=== PATIENT | male | born 1945 ===

== ENCOUNTER 2017-09-05 16:27 | Observation (INO) | payer MEDICARE, MEDICAID ==
--- NOTE | 2017-09-05 17:12 | ED PDOC ---
Hyperglycemia/Hypoglycemia Time Seen by Provider: 09/05/17 16:56 Chief Complaint (Nursing): High Blood Sugar Chief Complaint (Provider): High Blood Sugar History Per: Patient, Family (daughter) History/Exam Limitations: language barrier (emirati speaking) Onset/Duration Of Symptoms: Days (2-3), Other (chronic left shoulder/chest region pain x months) Current Symptoms Are (Timing): Still Present Severity: Severe : The patient does not have any of the infectious symptoms listed except for those marked. Additional Complaint(s): 71 year old male presents to the emergency department with daughter complaining of constant, worsening left shoulder and left chest pain, onset two to three days ago. Reports pain is similar to past episodes intermittently over the past multiple months. Patient states that after falling many weeks ago, did not seek medical visit?, Daughter notes that the patient had previously been diagnosed with frozen shoulder and suspects this pain originates from that area. But b/c of the worsening and persistence of his left shoulder/chest pain, pt was encouraged to come to Emergency department today for evaluation. She also states that today he nearly fell while using the bathroom, feeling extremely weak, saying he could not stand or walk. Per family, he also began having new slurred speech as of yesterday. Patient also complains of a mild frontal headache with light headedness. In addition, he reports a decreased appetite. Patient does however deny loss of consciousness and dizziness. Denies vision changes, fever, chills, sweats. Denies shortness of breath, palpations, abdominal pain, nausea, vomiting. Denies bowel changes and gross bleeding. Pt is right hand dominant. 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 PCP: Nolberto Matos Cards: Dr Santiago Endo: Ruben Barron NIHSS Stroke Scale - Date/Time Evaluation Performed When Was NIHSS Performed: Baseline - How Severe is the Stroke Level of Consciousness: 0=Alert LOC to Questions: 0=Both comments correct LOC to commands: 0=Obeys both correctly Best Gaze: 0=Normal Visual: 0=No visual loss Facial: 0=Normal Motor Arm - Left: 0=No drift Motor Arm - Right: 0=No drift Motor Leg - Left: 0=No drift Motor Leg - Right: 0=No drift Limb Ataxia: 0=Absent Sensory: 0=Normal Best Language: 0=No aphasia Dysarthia: 0=Normal articulation Extinction & Inattention (Neglect): 0=Normal, no object Score: 0 Severity Of Stroke: 0 = No Stroke Past Medical History Reviewed: Historical Data, Nursing Documentation, Vital Signs Vital Signs: Last Vital Signs Temp 98 F 09/05/17 16:34 Pulse 86 09/05/17 16:34 Resp 18 09/05/17 16:34 BP 198/98 H 09/05/17 16:34 Pulse Ox 99 09/05/17 16:34 - Medical History PMH: CVA, Diabetes, HTN, Hypercholesterolemia, TIA - Surgical History Surgical History: CABG - Family History Family History: States: Unknown Family Hx - Living Arrangements Living Arrangements: With Family (daughter) - Social History Current smoker - smoking cessation education provided: No Alcohol: None Drugs: Denies - Home Medications Home Medications: Ambulatory Orders Medication Instructions Recorded Clopidogrel [Plavix] 75 mg PO DAILY 09/05/17 DULoxetine [Cymbalta] 30 mg PO Q12 09/05/17 Ergocalciferol (Vitamin D2) 50,000 unit PO TU 09/05/17 [Vitamin D2] Furosemide [Lasix] 20 mg PO DAILY 09/05/17 Insulin Glargine, Recombina 10 unit SC 09/05/17 [Lantus] Meloxicam [Mobic] 15 mg PO DAILY PRN 09/05/17 Metoprolol Succinate [Toprol XL] 25 mg PO DAILY 09/05/17 Nitroglycerin [Nitrostat] 0.4 mg SL Q5MIN PRN 09/05/17 Simvastatin 10 mg PO HS 09/05/17 Tamsulosin [Flomax] 0.4 mg PO HS 09/05/17 amLODIPine [Norvasc] 5 mg PO DAILY 09/05/17 traMADol [Ultram] 50 mg PO Q8 PRN 09/05/17 Gabapentin [Neurontin] 400 mg PO Q8 cap 09/06/17 GlipiZIDE [Glucotrol] 10 mg PO BRKDIN #60 tab 09/06/17 Mirtazapine [Remeron] 15 mg PO HS #20 tab 09/06/17 SITagliptin [Januvia] 100 mg PO DAILY #30 tab 05/16/18 - Allergies Allergies/Adverse Reactions: Allergies Allergy/AdvReac Type Severity Reaction Status Date / Time No Known Allergies Allergy Verified 02/27/17 18:42 Review of Systems ROS Statement: Except As Marked, All Systems Reviewed And Found Negative Constitutional: Positive for: Weakness (states cannot walk, cannot stand). Negative for: Fever, Chills, Sweats Eyes: Negative for: Vision Change Cardiovascular: Positive for: Chest Pain (left sided), Light Headedness. Negative for: Palpitations Respiratory: Negative for: Shortness of Breath Gastrointestinal: Negative for: Nausea, Vomiting, Abdominal Pain, Other (bowel changes) Genitourinary Male: Negative for: Other (gross bleeding) Musculoskeletal: Positive for: Shoulder Pain (left) Neurological: Positive for: Change in Speech (slurred speech, as per family), Headache (frontal). Negative for: Dizziness Physical Exam - Reviewed Nursing Documentation Reviewed: Yes Vital Signs Reviewed: Yes - Physical Exam Appears: Positive for: Well, Non-toxic, No Acute Distress Head Exam: Positive for: ATRAUMATIC, NORMAL INSPECTION, NORMOCEPHALIC Skin: Positive for: Normal Color, Warm, Dry Eye Exam: Positive for: EOMI, Normal appearance, PERRL ENT: Positive for: Normal ENT Inspection Neck: Positive for: Normal, Painless ROM, Supple Cardiovascular/Chest: Positive for: Regular Rate, Rhythm, Murmur (systolic +2), Other (mild left chest wall tenderness, no crepitus, no gross deformities noted ; no masses) Respiratory: Positive for: Normal Breath Sounds, Other (CTA b/l, no w/r/r). Negative for: Respiratory Distress Gastrointestinal/Abdominal: Positive for: Normal Exam, Bowel Sounds, Soft, Other (well nourished male, no focal tenderness, no masses/rebound/guarding/ rigidity, no hopper's sign, no mcburney's point tenderness). 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 Negative for : Aphasia, Facial Droop - Laboratory Results Result Diagrams: 09/06/17 05:30 09/06/17 05:30 - ECG ECG: Positive for: Interpreted By Me, Viewed By Me Interpretation Of ECG: NSr at 80 bpm, normal axis, no ectopy, inverted T in leads I, L, no st changes, ABNL EKG; O2 Sat by Pulse Oximetry: 99 (RA) Pulse Ox Interpretation: Normal - Radiology X-Ray: Viewed By Me, Read By Radiologist - Progress ED Course And Treament: Impression: 1) chest pain; 2) weakness; 3) slurr speech; 4) ambulatory dysfunction i have consider all the differential diagnosis regarding pt's chief medical complaints/clinical findings, including but are not limited to: r/o acs; weakness; r/o CVA; ambulatory dysfunction A/P: chest pain; weakness; slurr speech; ambulatory dysfunction - labs - iv - acs eval - xray - supportive care - observe/reevaluation 7:00pm - medical service attending contacted, Dr Lind, made aware, agrees with admission pt/family are made aware of pt's medical results agrees with admission Re-evaluation Time: 19:00 Condition: Re-examined - Physician Consult Information Time Consulting Physican Contacted: 18:50 Physician Contacted: diogo Medical Decision Making Medical Decision Making: Time: 17:06 Impression: 1) chest pain, 2) weakness, 3) ambulatory dysfunction; 4) slurr speech Differential Diagnosis: I have consider all the differential diagnosis regarding pt's chief medical complaints/clinical findings, including but are not limited to: r/o acs, r/o dehydration, r/o cva vs TIA Plan: --Type and Screen --CT Head w/o contrast --CMP --Lipase --Mg --TSH --Trop I --EKG --CBC w differential --PT / PTT --Chest XR --Shoulder XR --Urinalysis --Supportive care --Observe 18:15 Shoulder XR FINDINGS: BONES: Evidence of old trauma, proximal left Humerus affecting the neck left humeral head. Proliferative hypertrophic posttraumatic changes affect the inferior aspect of the humeral head and are adjacent to the glenoid JOINTS: Normal. Glenohumeral and acromioclavicular joints preserved. No osteoarthritis. SOFT TISSUE: Normal OTHER FINDINGS: None IMPRESSION: No acute findings related to / accounting for the clinical presentation 19:[address] FINDINGS: HEMORRHAGE: No intracranial hemorrhage BRAIN: No mass effect or edema. Cortical atrophy, periventricular small vessel disease VENTRICLES: Unremarkable. No hydrocephalus CALVARIUM: Unremarkable PARANASAL SINUSES: Unremarkable as visualized. No significant inflammatory changes MASTOID AIR CELLS: Unremarkable as visualized OTHER FINDINGS: None IMPRESSION: No acute intracranial abnormalities. No significant findings to account for the clinical presentation. Scribe Attestation: Documented by Alexandria Cline, acting as a scribe for Lenny Hunt MD Provider Scribe Attestation: All medical entries made by the Scribe were at my direction and personally dictated by me. I have reviewed the chart and agree that the record accurately reflects my personal performance of the history, physical exam, medical decision making, and the department course for this patient. I have also personally directed, reviewed, and agree with the discharge instructions and disposition. Disposition - Clinical Impression Clinical Impression: Chest pain with minimal risk for cardiac etiology, Slurred speech, Weakness, Ambulatory dysfunction - Patient ED Disposition Is Patient to be Admitted: Yes Discussed With : Diogo Doctor Will See Patient In The: ED Counseled Patient/Family Regarding: Studies Performed, Diagnosis - Disposition Disposition Time: 19:00 Condition: STABLE - Pt Status Changed To: Hospital Disposition Of: Observation
[2017-09-05 17:27] LABS: BASO % 0.4 % (0.0-2.0); EOS % 0.5 % (0.0-4.0); HEMOGLOBIN 13.3 g/dL (12.0-18.0); LYMPH # 1.7 K/uL (1.0-4.3); MEAN CELL VOLUME 90.5 fl (80.0-94.0); MEAN CORPUSCULAR HEMOGLOBIN 30.6 pg (27.0-31.0); MEAN CORPUSCULAR HGB CONC 33.8 g/dL (33.0-37.0); MEAN PLATELET VOLUME 7.1 fl (7.2-11.7); MONO # 0.6 K/uL (0.0-0.8); MONO % 7.9 % (0.0-10.0); NEUT # 5.3 K/uL (1.8-7.0); NEUT % 69.2 % (50.0-75.0); RBC 4.33 Mil/uL (4.40-5.90); RED CELL DISTRIBUTION WIDTH 13.2 % (11.5-14.5); WHITE BLOOD COUNT 7.7 K/uL (4.8-10.8)
[2017-09-05 17:47] LABS: ALB/GLOB RATIO 1.4 (1.0-2.1); ALBUMIN 3.9 g/dL (3.5-5.0); ALT/SGPT 50 U/L (21-72); AST/SGOT 25 U/L (17-59); BLOOD UREA NITROGEN 14 mg/dl (9-20); CALCIUM 9.6 mg/dL (8.4-10.2); GFR AFRICAN-AMERICAN > 60; GFR NON-AFRICAN AMERICAN > 60; LIPASE 74 U/L (23-300)
--- NOTE | 2017-09-05 17:47 | RAD ---
HISTORY: weakness, no fall COMPARISON: No prior. TECHNIQUE: Chest PA and lateral FINDINGS: LUNGS: No active pulmonary disease. PLEURA: No significant pleural effusion identified. No pneumothorax apparent. CARDIOVASCULAR: No radiographic findings to suggest acute or significant cardiovascular disease. Incidental Finding(s): Postoperative changes related to sternotomy OSSEOUS STRUCTURES: No significant abnormalities. VISUALIZED UPPER ABDOMEN: Normal. OTHER FINDINGS: None. IMPRESSION: No active disease.
[2017-09-05 17:51] LABS: INR 1.2 (0.9-1.2); PARTIAL THROMBOPLASTIN TIME 28.8 Seconds (25.6-37.1); PROTHROMBIN TIME 13.1 Seconds (9.8-13.1)
[2017-09-05 18:09] LABS: URINE BACTERIA RARE (<OCC); URINE BILIRUBIN NEGATIVE (NEGATIVE); URINE BLOOD NEGATIVE (NEGATIVE); URINE CLARITY SLIGHTY-CLOUDY (Clear); URINE COLOR YELLOW (YELLOW); URINE GLUCOSE (UA) 150 mg/dL (Normal); URINE HYALINE CAST 0-2 /hpf (0-2); URINE LEUKOCYTE ESTERASE NEG Leu/uL (Negative); URINE PROTEIN NEGATIVE (NEGATIVE)
--- NOTE | 2017-09-05 18:16 | RAD ---
PROCEDURE: Radiographs of the Left Shoulder HISTORY: hx of frozen shoulder, worse pain x 2-3 days COMPARISON: None FINDINGS: BONES: Evidence of old trauma, proximal left Humerus affecting the neck and left humeral head. Proliferative hypertrophic posttraumatic changes affect the inferior aspect of the humeral head and are adjacent to the glenoid. JOINTS: Normal. Glenohumeral and acromioclavicular joints preserved. No osteoarthritis. SOFT TISSUES: Normal. OTHER FINDINGS: None. IMPRESSION: No acute findings related to/accounting for the clinical presentation.
--- NOTE | 2017-09-05 19:04 | CT ---
PROCEDURE: CT HEAD WITHOUT CONTRAST. HISTORY: Weakness, slurred speech. Relevant medical history: History of prior CVA COMPARISON: None available. TECHNIQUE: Axial computed tomography images were obtained through the head/brain without intravenous contrast. Radiation dose: Total exam DLP = Peter 2.75 mGy-cm. This CT exam was performed using one or more of the following dose reduction techniques: Automated exposure control, adjustment of the mA and/or kV according to patient size, and/or use of iterative reconstruction technique. FINDINGS: HEMORRHAGE: No intracranial hemorrhage. BRAIN: No mass effect or edema. Cortical atrophy, periventricular small vessel disease. VENTRICLES: Unremarkable. No hydrocephalus. CALVARIUM: Unremarkable. PARANASAL SINUSES: Unremarkable as visualized. No significant inflammatory changes. MASTOID AIR CELLS: Unremarkable as visualized. No inflammatory changes. OTHER FINDINGS: None. IMPRESSION: No acute intracranial abnormalities. No significant findings to account for the clinical presentation.
--- NOTE | 2017-09-05 19:17 | CP.PCM.HP ---
History of Present Illness - History of Present Illness History of Present Illness: 71 yo male with history of CAD (quadruple bypass 17 yrs ago), DM2, HTN and CVA ( 10 and 4 yrs ago) brought by daughter claiming he progressively was getting weak and had difficulty ambulating since 2 weeks ago. She claimed he had been falling a number of times at home. Patient also has been complaining of left sided chest pain and has SOB on mild exertion. Daughter suspect that the chest pain might be an extension of his left frozen shoulder which have been bothering him causing him not to be able to sleep at night. Daughter also claimed that he used to take "Thyroid Hormone" but was DC about 6 months ago by offset plate maker claiming he did not need them anymore. Present on Admission - Present on Admission Any Indicators Present on Admission: No History of DVT/PE: No History of Uncontrolled Diabetes: No Urinary Catheter: No Decubitus Ulcer Present: No Review of Systems - Review of Systems All systems: reviewed and no additional remarkable complaints except (aside from those mentioned above, 12 point system review were negative by me) Past Patient History - Infectious Disease Hx of Infectious Diseases: None - Tetanus Immunizations Tetanus Immunization: Unknown - Past Medical History & Family History Past Medical History?: Yes Pertinent Family History: Mother and Father had DM2; Mother had HTN and of NC. - Past Social History Smoking Status: Never Smoked Chewing Tobacco Use: No Cigar Use: No Alcohol: None Drugs: Denies Home Situation {Lives}: With Family - CARDIAC Hx Hypercholesterolemia: Yes Hx Hypertension: Yes - PULMONARY Hx Respiratory Disorders: No - NEUROLOGICAL HX Cerebrovascular Accident: Yes (10 and 4 yrs ago) Hx Transient Ischemic Attacks (TIA): Yes - HEENT Hx HEENT Problems: No - RENAL Hx Chronic Kidney Disease: No - ENDOCRINE/METABOLIC Hx Diabetes Mellitus Type 2: Yes Hx Hypothyroidism: Yes ("thyroid hormone" DC 6 months ago) - HEMATOLOGICAL/ONCOLOGICAL Hx Blood Disorders: No - INTEGUMENTARY Hx Dermatological Problems: No - MUSCULOSKELETAL/RHEUMATOLOGICAL Hx Musculoskeletal Disorders: Yes Other/Comment: left Frozen Shoulder - GASTROINTESTINAL Hx Gastrointestinal Disorders: No - GENITOURINARY/GYNECOLOGICAL Hx Genitourinary Disorders: No - PSYCHIATRIC Hx Psychophysiologic Disorder: No Hx Substance Use: No - SURGICAL HISTORY Hx Coronary Artery Bypass Graft: Yes (17 yrs ago) - ANESTHESIA Hx Anesthesia: Yes Hx Anesthesia Reactions: No Meds Allergies/Adverse Reactions: Allergies Allergy/AdvReac Type Severity Reaction Status Date / Time No Known Allergies Allergy Verified 02/27/17 18:42 Physical Exam - Constitutional Appears: Other (sleepy but responsive) - Head Exam Head Exam: ATRAUMATIC - Eye Exam Eye Exam: PERRL. absent: Scleral icterus - ENT Exam ENT Exam: Mucous Membranes Moist - Neck Exam Neck exam: Negative for: Meningismus - Respiratory Exam Respiratory Exam: absent: Rales, Rhonchi, Wheezes, Respiratory Distress - Cardiovascular Exam Cardiovascular Exam: REGULAR RHYTHM, +S1, +S2 - GI/Abdominal Exam GI & Abdominal Exam: Soft. absent: Tenderness - Rectal Exam Rectal Exam: Deferred - Extremities Exam Extremities exam: Negative for: calf tenderness, pedal edema - Back Exam Back exam: absent: tenderness - Neurological Exam Neurological exam: Alert (but sleepy), Oriented x3 - Psychiatric Exam Psychiatric exam: Flat Affect - Skin Skin Exam: Dry, Intact Results - Vital Signs Recent Vital Signs: Last Vital Signs Temp 98.1 F 09/05/17 18:37 Pulse 71 09/05/17 18:37 Resp 16 09/05/17 18:37 BP 127/61 09/05/17 18:37 Pulse Ox 99 09/05/17 18:37 - Labs Result Diagrams: 09/05/17 17:18 09/05/17 17:18 Labs: Laboratory Results - last 24 hr 09/05/17 09/05/17 09/05/17 17:18 17:18 17:18 WBC 7.7 RBC 4.33 L Hgb 13.3 Hct 39.2 MCV 90.5 MCH 30.6 MCHC 33.8 RDW 13.2 Plt Count 168 MPV 7.1 L Neut % (Auto) 69.2 Lymph % (Auto) 22.0 Bradley % (Auto) 7.9 Eos % (Auto) 0.5 Baso % (Auto) 0.4 Neut # (Auto) 5.3 Lymph # (Auto) 1.7 Bradley # (Auto) 0.6 Eos # (Auto) 0.0 Baso # (Auto) 0.0 PT 13.1 INR 1.2 APTT 28.8 Sodium 133 Potassium 3.7 Chloride 95 L Carbon Dioxide 23 Anion Gap 19 BUN 14 Creatinine 0.5 L Est GFR ( Amer) > 60 Est GFR (Non-Af Amer) > 60 Random Glucose 251 H Calcium 9.6 Magnesium 1.4 L Total Bilirubin 0.7 AST 25 ALT 50 Alkaline Phosphatase 66 Troponin I < 0.0120 Total Protein 6.7 Albumin 3.9 Globulin 2.8 Albumin/Globulin Ratio 1.4 Lipase 74 TSH 3rd Generation 1.14 Urine Color Urine Clarity Urine pH Ur Specific Frontier Urine Protein Urine Glucose (UA) Urine Ketones Urine Blood Urine Nitrate Urine Bilirubin Urine Urobilinogen Ur Leukocyte Esterase Urine RBC (Auto) Urine Microscopic WBC Urine Bacteria Hyaline Casts Blood Type Antibody Screen BBK History Checked 09/05/17 09/05/17 17:18 17:46 WBC RBC Hgb Hct MCV MCH MCHC RDW Plt Count MPV Neut % (Auto) Lymph % (Auto) Bradley % (Auto) Eos % (Auto) Baso % (Auto) Neut # (Auto) Lymph # (Auto) Bradley # (Auto) Eos # (Auto) Baso # (Auto) PT INR APTT Sodium Potassium Chloride Carbon Dioxide Anion Gap BUN Creatinine Est GFR ( Amer) Est GFR (Non-Af Amer) Random Glucose Calcium Magnesium Total Bilirubin AST ALT Alkaline Phosphatase Troponin I Total Protein Albumin Globulin Albumin/Globulin Ratio Lipase TSH 3rd Generation Urine Color Yellow Urine Clarity Slighty-cloudy Urine pH 7.0 Ur Specific Frontier 1.019 Urine Protein Negative Urine Glucose (UA) 150 Urine Ketones Negative Urine Blood Negative Urine Nitrate Negative Urine Bilirubin Negative Urine Urobilinogen 2.0 Ur Leukocyte Esterase Neg Urine RBC (Auto) 2 Urine Microscopic WBC 1 Urine Bacteria Rare Hyaline Casts 0-2 Blood Type O POSITIVE Antibody Screen Negative BBK History Checked No verified bt Assessment & Plan - Assessment and Plan (Free Text) Assessment: 71 yo male with history of CAD (quadruple bypass 17 yrs ago), DM2, HTN and CVA ( 10 and 4 yrs ago) brought by daughter claiming he progressively was getting weak and had difficulty ambulating since 2 weeks ago. She claimed he had been falling a number of times at home. Patient also has been complaining of left sided chest pain and has SOB on mild exertion. Daughter suspect that the chest pain might be an extension of his left frozen shoulder which have been bothering him causing him not to be able to sleep at night. Daughter also claimed that he used to take "Thyroid Hormone" but was DC about 6 months ago by offset plate maker claiming he did not need them anymore. 1. Chest Pain place on observation in telemetry serial Troponins and EKG ECHO (daughter claimed he has easy fatigability) 2. Generalized Weakness TSH: 1.[address] Diaz condition might be secondary to uncontrolled depression patient on Cymbalta and Remeron Psyche consult with Dr Nolasco 3. DM2 BS uncontrolled Levemir 10 units SC HS Sitagliptin 50mg PO daily Metformin 500mg PO BID accuchek ACHS HgA1C, BMP in am 4. CAD NTG SL prn Toprol XL 25mg PO daily Lipitor 10mg PO HS Plavix 75mg PO daily 5. HTN BP stable continue Amlodipine and Toprol XL 6. DVT prophylaxis Lovenox 40mg SC daily
[2017-09-05] MEDS ORDERED: Ergocalciferol 50,000 Intl Units Cap PO SCH (20:15)
[2017-09-05] MEDS ORDERED: Insulin Detemir 100 Units/ml Inj SC SCH (22:30)
[2017-09-06] MEDS ORDERED: Labetalol 5 mg/ml Inj 20ML IVP STA (01:08)
--- NOTE | 2017-09-06 03:58 | CON ---
ENDOCRINOLOGY CONSULTATION NOTE DATE: LOCATION: In room 406, bed 1. HISTORY OF PRESENT ILLNESS: This is a 71-year-old male with known history of type 2 diabetes and hypertension and significant cardiac vasculopathy, presenting here with worsening left-sided precordial chest pain with progressive shortness of breath and is now being referred for diabetic evaluation and management. He is undergoing cardiac workup at this time and also neurological workup for possible recurrent CVA as noted. He has had recent bouts of increasing dizziness and lightheadedness with near syncopal episodes and difficulty with ambulation as noted. PAST MEDICAL HISTORY: As mentioned above, history of type 2 diabetes, currently on Janumet given twice a day, the exact dose is not known at this time. History of hypertension and dyslipidemia, history of diabetic retinopathy and polyneuropathy, history of coronary artery disease with previous quadruple coronary artery bypass graft surgery over 15 years ago, and history of recent transient ischemic events with significant history of two episodes of acute CVA with slight residual left-sided weakness. History of left frozen shoulder and osteoarthritis and bursitis with restricted motion of the left shoulder joint worse in the last few days prior to admission, history of an apparent thyroid disorder, but has been taken off thyroid medications as noted. FAMILY HISTORY: Positive for diabetes and hypertension. SOCIAL HISTORY: The patient has a supportive family. No known substance use. He lives with his daughter at this time. REVIEW OF SYSTEMS: Admits to generalized body weakness with increasing bouts of hypersomnolence and lethargy with distracted sleep patterns. Also admits to bifrontal headaches with progressive bouts of dizziness and lightheadedness with increasing difficulty with ambulation and near syncopal episodes. Admits to left-sided precordial chest pain with progressive shortness of breath especially on exertion. His oral intake has been variable with nausea, dyspepsia, and vague upper abdominal pains. Also admits to episodic bouts of nocturia and polyuria with lower extremity painful paresthesias. PHYSICAL EXAMINATION: GENERAL: This is an average built male in no apparent distress. VITAL SIGNS: Blood pressure of 150/90, pulse of 70 beats per minute and regular, temperature 98, respirations 20, height is 5 feet 4 inches, and weight is 140 pounds. HEENT: Head is normocephalic. Eyes; anicteric with pink conjunctivae. Funduscopy not possible at this time. Ears, nose, and throat otherwise normal. NECK: Supple. Thyroid gland is normal in size. No carotid bruits or cervical adenopathy. CARDIOPULMONARY: Some adynamic precordium. S1 and S2 is rapid and regular. LUNGS: Clear to auscultation. ABDOMEN: Flat and soft with positive bowel sounds. EXTREMITIES: No peripheral edema. Pulses are +2 bilaterally. LABORATORY DATA: Chemistries showed a BUN of 14, sodium 133, potassium 3.7, chloride 95, CO2 of 23, glucose 251, and creatinine 0.5. His TSH is 1.14 at this time. ASSESSMENT: This is a 71-year-old male with uncontrolled and decompensated type 2 insulin-requiring diabetes with recent hyperglycemic accelerations possibly related to a subtherapeutic diabetic regimen at this time. Moreover, he has diabetic microvascular complications of retinopathy and polyneuropathy with diabetic macrovascular complications of acute cerebrovascular accident with previous transient ischemic attack events and also residual left-sided weakness as noted. He also has a recurrent bouts of near syncope and episodic bouts of dizziness and lightheadedness and the possibility always of a vertebrobasilar insufficiency also has to be excluded at this point in time. Moreover, he has significant coronary artery disease with previous coronary artery bypass graft surgery as mentioned with underlying peripheral arterial vasculopathy. PLAN OF MANAGEMENT: As discussed with the patient's staff, we will modify his current insulin regimen and start him on a very low dose Humalog coverage scale as ordered and we will observe his glycemic fluctuations overnight as noted. We will continue the Levemir given as 10 units subcutaneously at bedtime daily and we will titrate incremental as indicated to optimize metabolic control. We will hold off the resumption of metformin therapy, not only because of his advanced age at this time, but also because of the possibility of cardiac workup to be undertaken as noted. We will also add glipizide given as 10 mg b.i.d. before breakfast and dinner as ordered with Januvia to be added at 100 mg once daily in the morning to start tomorrow as given. We will obtain a hemoglobin A1c to confirm his prior glycemic control and baseline comprehensive thyroid hormonal profile will be ordered. We will obtain serial chemistry and supplement accordingly as needed. We will follow. Roxanna Diaz MD
[2017-09-06 06:30] LABS: BASO % 0.5 % (0.0-2.0); EOS # 0.1 K/uL (0.0-0.7); EOS % 0.8 % (0.0-4.0); HEMOGLOBIN 13.5 g/dL (12.0-18.0); LYMPH # 2.2 K/uL (1.0-4.3); LYMPH % 32.1 % (20.0-40.0); MEAN CELL VOLUME 90.2 fl (80.0-94.0); MEAN CORPUSCULAR HEMOGLOBIN 30.9 pg (27.0-31.0); MEAN CORPUSCULAR HGB CONC 34.3 g/dL (33.0-37.0); MEAN PLATELET VOLUME 7.2 fl (7.2-11.7); MONO # 0.5 K/uL (0.0-0.8); MONO % 7.3 % (0.0-10.0); NEUT # 4.1 K/uL (1.8-7.0); NEUT % 59.3 % (50.0-75.0); NRBC % 0.1 % (0.0-0.0); RBC 4.37 Mil/uL (4.40-5.90); RED CELL DISTRIBUTION WIDTH 12.9 % (11.5-14.5); WHITE BLOOD COUNT 6.9 K/uL (4.8-10.8)
[2017-09-06] MEDS: Insulin Lispro (humaLOG) 100 Units/ml Inj SC SCH ×2 (06:31→12:55)
[2017-09-06 06:48] LABS: LDL CHOLESTEROL 76 mg/dL (0-129)
[2017-09-06 06:53] LABS: T4 5.85 ug/dl (5.5-11.0)
[2017-09-06 07:37] LABS: ALB/GLOB RATIO 1.4 (1.0-2.1); ALBUMIN 3.8 g/dL (3.5-5.0); ALT/SGPT 45 U/L (21-72); AST/SGOT 23 U/L (17-59); BLOOD UREA NITROGEN 11 mg/dl (9-20); CALCIUM 9.7 mg/dL (8.4-10.2); GFR AFRICAN-AMERICAN > 60; GFR NON-AFRICAN AMERICAN > 60; HDL CHOLESTEROL 53 MG/DL (30-70)
--- NOTE | 2017-09-06 07:38 | CP.PCM.CON ---
History of Present Illness - History of Present Illness History of Present Illness: Psychiatry consult note CC: "I'm depressed." HPI: 71 yo ma.e w/ h/o CAD (s/p quadruple bypass 17 yrs ago), DMII, HTN, CVA ( 10 and 4 yrs ago), chronic pain, BIB daughter due to weakness and difficulty ambulating. Patient also reports depression, low energy and feelings of hopelessness at times. He reports that sometimes he thinks about , but denies active suicidal ideation/plan/intent. He is not agreeable to voluntary psychiatric admission at this time. No psychosis/paranoia/susan. PMHx: CAD (s/p quadruple bypass 17 yrs ago), DMII, HTN, CVA (10 and 4 yrs ago), chronic pain PPHx: Denies past psychiatric treatment or hospitalizations ALL: NKDA SHx: Lives w/ and children; denies drugs/etoh/cig; retired MSE: A + O x 3, calm, cooperative, NAD, speech normal, good eye contact, mood- depressed, affect- full range/able to brighten, thought process- linear/coherent , thought content- no delusions; no AH/VH/SI/HI; fair I/J Impression: 71 yo male w/ h/o CAD (s/p quadruple bypass 17 yrs ago), DMII, HTN, CVA (10 and 4 yrs ago), chronic pain; presents w/ depression, would benefit from outpatient psychiatric treatment. -Increase Remeron to 15 mg PO HS -No inpatient psychiatric admission indicated at this time -Outpatient psychiatric referral; can refer to [facility] if patient agreeable Past Patient History - Infectious Disease Hx of Infectious Diseases: None - Tetanus Immunizations Tetanus Immunization: Unknown - Past Medical History & Family History Past Medical History?: Yes - Past Social History Smoking Status: Never Smoked - CARDIAC Hx Hypercholesterolemia: Yes Hx Hypertension: Yes - PULMONARY Hx Respiratory Disorders: No - NEUROLOGICAL HX Cerebrovascular Accident: Yes (10 and 4 yrs ago) Hx Transient Ischemic Attacks (TIA): Yes - HEENT Hx HEENT Problems: No - RENAL Hx Chronic Kidney Disease: No - ENDOCRINE/METABOLIC Hx Diabetes Mellitus Type 2: Yes Hx Hypothyroidism: Yes ("thyroid hormone" DC 6 months ago) - HEMATOLOGICAL/ONCOLOGICAL Hx Blood Disorders: No Hx AIDS: No Hx Blood Transfusions: No Hx Human Immunodeficiency Virus (HIV): No - INTEGUMENTARY Hx Dermatological Problems: No - MUSCULOSKELETAL/RHEUMATOLOGICAL Hx Musculoskeletal Disorders: Yes Hx Falls: Yes Other/Comment: left Frozen Shoulder - GASTROINTESTINAL Hx Gastrointestinal Disorders: No - GENITOURINARY/GYNECOLOGICAL Hx Genitourinary Disorders: No - PSYCHIATRIC Hx Depression: Yes Hx Substance Use: No - SURGICAL HISTORY Hx Surgeries: Yes Hx Coronary Artery Bypass Graft: Yes (17 yrs ago) - ANESTHESIA Hx Anesthesia: Yes Hx Anesthesia Reactions: No Meds Allergies/Adverse Reactions: Allergies Allergy/AdvReac Type Severity Reaction Status Date / Time No Known Allergies Allergy Verified 02/27/17 18:42 - Medications Medications: Current Medications Acetaminophen (Tylenol 325mg Tab) 650 mg PO Q6 PRN PRN Reason: Pain, Mild (1-3) Last Admin: 09/05/17 21:17 Dose: 650 mg Amlodipine Besylate (Norvasc) 5 mg PO DAILY [facility] Baclofen (Lioresal) 10 mg PO Q8 PRN PRN Reason: Muscle spasm Clopidogrel Bisulfate (Plavix) 75 mg PO DAILY [facility] Docusate Sodium (Colace) 100 mg PO BID PRN PRN Reason: Constipation Duloxetine HCl (Cymbalta) 30 mg PO Q12 [facility] Last Admin: 09/05/17 23:05 Dose: 30 mg Enoxaparin Sodium (Lovenox) 40 mg SC DAILY [facility] PRN Reason: Protocol Ergocalciferol (Drisdol 50,000 Intl Units Cap) 1 cap PO TU [facility] Last Admin: 09/05/17 22:12 Dose: Not Given Furosemide (Lasix) 20 mg PO DAILY [facility] Gabapentin (Neurontin) 400 mg PO Q8 [facility] Last Admin: 09/06/17 01:09 Dose: 400 mg Glipizide (Glucotrol) 10 mg PO BIDAC [facility] Insulin Detemir (Levemir) 10 units SC [facility] Last Admin: 09/05/17 23:05 Dose: 10 units Insulin Human Lispro (Humalog) 0 units SC [facility] Last Admin: 09/06/17 06:31 Dose: Not Given Metoprolol Succinate (Toprol Xl) 25 mg PO DAILY [facility] Mirtazapine (Remeron) 7.5 mg PO HS [facility] Last Admin: 09/05/17 23:05 Dose: 7.5 mg Nitroglycerin (Nitrostat Sl Tab) 0.4 mg SL Q5MIN PRN PRN Reason: Other Pantoprazole Sodium (Protonix Ec Tab) 40 mg PO DAILY KAYLIE Pravastatin Sodium (Pravachol) 20 mg PO HS KAYLIE Last Admin: 09/05/17 23:06 Dose: 20 mg Sitagliptin Phosphate (Januvia) 100 mg PO DAILY KAYLIE Tamsulosin HCl (Flomax) 0.4 mg PO HS KAYLIE Last Admin: 09/05/17 23:05 Dose: 0.4 mg Tramadol HCl (Ultram) 50 mg PO Q8 PRN PRN Reason: Pain, severe (8-10) Results - Vital Signs Recent Vital Signs: Last Vital Signs Temp 98.9 F 09/06/17 05:43 Pulse 79 09/06/17 05:43 Resp 18 09/06/17 05:43 BP 109/79 09/06/17 05:43 Pulse Ox 98 09/06/17 05:43 - Labs Result Diagrams: 09/06/17 05:30 09/06/17 05:30 Labs: Laboratory Results - last 24 hr 09/05/17 09/05/17 09/05/17 17:18 17:18 17:18 WBC 7.7 RBC 4.33 L Hgb 13.3 Hct 39.2 MCV 90.5 MCH 30.6 MCHC 33.8 RDW 13.2 Plt Count 168 MPV 7.1 L Neut % (Auto) 69.2 Lymph % (Auto) 22.0 Mower % (Auto) 7.9 Eos % (Auto) 0.5 Baso % (Auto) 0.4 Neut # (Auto) 5.3 Lymph # (Auto) 1.7 Mower # (Auto) 0.6 Eos # (Auto) 0.0 Baso # (Auto) 0.0 PT 13.1 INR 1.2 APTT 28.8 Sodium 133 Potassium 3.7 Chloride 95 L Carbon Dioxide 23 Anion Gap 19 BUN 14 Creatinine 0.5 L Est GFR ( Amer) > 60 Est GFR (Non-Af Amer) > 60 POC Glucose (mg/dL) Random Glucose 251 H Calcium 9.6 Magnesium 1.4 L Total Bilirubin 0.7 AST 25 ALT 50 Alkaline Phosphatase 66 Troponin I < 0.0120 Total Protein 6.7 Albumin 3.9 Globulin 2.8 Albumin/Globulin Ratio 1.4 Triglycerides Cholesterol LDL Cholesterol Direct HDL Cholesterol Lipase 74 Vitamin B12 Free T4 Thyroxine (T4) TSH 3rd Generation 1.14 Urine Color Urine Clarity Urine pH Ur Specific [place] Urine Protein Urine Glucose (UA) Urine Ketones Urine Blood Urine Nitrate Urine Bilirubin Urine Urobilinogen Ur Leukocyte Esterase Urine RBC (Auto) Urine Microscopic WBC Urine Bacteria Hyaline Casts Blood Type Antibody Screen BBK History Checked 09/05/17 09/05/17 09/05/17 17:18 17:46 22:05 WBC RBC Hgb Hct MCV MCH MCHC RDW Plt Count MPV Neut % (Auto) Lymph % (Auto) Mower % (Auto) Eos % (Auto) Baso % (Auto) Neut # (Auto) Lymph # (Auto) Mower # (Auto) Eos # (Auto) Baso # (Auto) PT INR APTT Sodium Potassium Chloride Carbon Dioxide Anion Gap BUN Creatinine Est GFR ( Amer) Est GFR (Non-Af Amer) POC Glucose (mg/dL) 153 H Random Glucose Calcium Magnesium Total Bilirubin AST ALT Alkaline Phosphatase Troponin I Total Protein Albumin Globulin Albumin/Globulin Ratio Triglycerides Cholesterol LDL Cholesterol Direct HDL Cholesterol Lipase Vitamin B12 Free T4 Thyroxine (T4) TSH 3rd Generation Urine Color Yellow Urine Clarity Slighty-cloudy Urine pH 7.0 Ur Specific [place] 1.019 Urine Protein Negative Urine Glucose (UA) 150 Urine Ketones Negative Urine Blood Negative Urine Nitrate Negative Urine Bilirubin Negative Urine Urobilinogen 2.0 Ur Leukocyte Esterase Neg Urine RBC (Auto) 2 Urine Microscopic WBC 1 Urine Bacteria Rare Hyaline Casts 0-2 Blood Type O POSITIVE Antibody Screen Negative BBK History Checked No verified bt 09/06/17 09/06/17 09/06/17 01:18 04:57 05:30 WBC 6.9 RBC 4.37 L Hgb 13.5 Hct 39.4 MCV 90.2 MCH 30.9 MCHC 34.3 RDW 12.9 Plt Count 168 MPV 7.2 Neut % (Auto) 59.3 Lymph % (Auto) 32.1 Mower % (Auto) 7.3 Eos % (Auto) 0.8 Baso % (Auto) 0.5 Neut # (Auto) 4.1 Lymph # (Auto) 2.2 Mower # (Auto) 0.5 Eos # (Auto) 0.1 Baso # (Auto) 0.0 PT INR APTT Sodium Potassium Chloride Carbon Dioxide Anion Gap BUN Creatinine Est GFR ( Amer) Est GFR (Non-Af Amer) POC Glucose (mg/dL) 128 H Random Glucose Calcium Magnesium Total Bilirubin AST ALT Alkaline Phosphatase Troponin I < 0.0120 Total Protein Albumin Globulin Albumin/Globulin Ratio Triglycerides Cholesterol LDL Cholesterol Direct HDL Cholesterol Lipase Vitamin B12 Free T4 Thyroxine (T4) TSH 3rd Generation Urine Color Urine Clarity Urine pH Ur Specific [place] Urine Protein Urine Glucose (UA) Urine Ketones Urine Blood Urine Nitrate Urine Bilirubin Urine Urobilinogen Ur Leukocyte Esterase Urine RBC (Auto) Urine Microscopic WBC Urine Bacteria Hyaline Casts Blood Type Antibody Screen BBK History Checked 09/06/17 09/06/17 05:30 05:30 WBC RBC Hgb Hct MCV MCH MCHC RDW Plt Count MPV Neut % (Auto) Lymph % (Auto) Mower % (Auto) Eos % (Auto) Baso % (Auto) Neut # (Auto) Lymph # (Auto) Mower # (Auto) Eos # (Auto) Baso # (Auto) PT INR APTT Sodium 144 Potassium 3.4 L Chloride 102 Carbon Dioxide 28 Anion Gap 17 BUN 11 Creatinine 0.5 L Est GFR ( Amer) > 60 Est GFR (Non-Af Amer) > 60 POC Glucose (mg/dL) Random Glucose 139 H Calcium 9.7 Magnesium Total Bilirubin 0.9 AST 23 ALT 45 Alkaline Phosphatase 66 Troponin I Total Protein 6.6 Albumin 3.8 Globulin 2.8 Albumin/Globulin Ratio 1.4 Triglycerides 102 Cholesterol 152 LDL Cholesterol Direct 76 HDL Cholesterol 53 Lipase Vitamin B12 722 Free T4 0.82 Thyroxine (T4) 5.85 TSH 3rd Generation 1.34 Urine Color Urine Clarity Urine pH Ur Specific [place] Urine Protein Urine Glucose (UA) Urine Ketones Urine Blood Urine Nitrate Urine Bilirubin Urine Urobilinogen Ur Leukocyte Esterase Urine RBC (Auto) Urine Microscopic WBC Urine Bacteria Hyaline Casts Blood Type Antibody Screen BBK History Checked
[2017-09-06 08:09] VITALS: RESP 20
[2017-09-06] MEDS ORDERED: Pantoprazole 40 mg EC Tab PO SCH (09:00)
[2017-09-06] MEDS ORDERED: Metoprolol Succinate 25 mg XL Tab PO SCH (09:00)
[2017-09-06] MEDS ORDERED: Enoxaparin 40 mg Syringe SC SCH (09:00)
[2017-09-06] MEDS ORDERED: Potassium Chloride 20 mEq ER Tab PO ONE (11:00)
[2017-09-06 11:57] VITALS: BP 129/79; PULSE 70; TEMP 97.6
--- NOTE | 2017-09-06 14:27 | CP.PCM.DIS ---
Provider - Provider Date of Admission: 09/05/17 18:24 Attending physician: Diogo Roque MD Consults: Dr Joe Nolasco Time Spent in preparation of Discharge (in minutes): 25 Diagnosis - Discharge Diagnosis (1) Chest pain Status: Acute Comment: serial Troponins negative for ischemic changes (2) Weakness Status: Acute Comment: more uplifted today. continue anti-depressant (3) DM2 (diabetes mellitus, type 2) Status: Acute Comment: BS controlled. DC Metformin. continue Januvia and Lantus. Glucotrol 10mg PO BID (4) HTN (hypertension) Status: Acute Comment: BP stable. continue Amlodipine Hospital Course - Lab Results Lab Results: Most Recent Lab Values WBC 6.9 K/uL (4.8-10.8) 09/06/17 05:30 RBC 4.37 Mil/uL (4.40-5.90) L 09/06/17 05:30 Hgb 13.5 g/dL (12.0-18.0) 09/06/17 05:30 Hct 39.4 % (35.0-51.0) 09/06/17 05:30 MCV 90.2 fl (80.0-94.0) 09/06/17 05:30 MCH 30.9 pg (27.0-31.0) 09/06/17 05:30 MCHC 34.3 g/dL (33.0-37.0) 09/06/17 05:30 RDW 12.9 % (11.5-14.5) 09/06/17 05:30 Plt Count 168 K/uL (130-400) 09/06/17 05:30 MPV 7.2 fl (7.2-11.7) 09/06/17 05:30 Neut % (Auto) 59.3 % (50.0-75.0) 09/06/17 05:30 Lymph % (Auto) 32.1 % (20.0-40.0) 09/06/17 05:30 Elmore % (Auto) 7.3 % (0.0-10.0) 09/06/17 05:30 Eos % (Auto) 0.8 % (0.0-4.0) 09/06/17 05:30 Baso % (Auto) 0.5 % (0.0-2.0) 09/06/17 05:30 Neut # (Auto) 4.1 K/uL (1.8-7.0) 09/06/17 05:30 Lymph # (Auto) 2.2 K/uL (1.0-4.3) 09/06/17 05:30 Elmore # (Auto) 0.5 K/uL (0.0-0.8) 09/06/17 05:30 Eos # (Auto) 0.1 K/uL (0.0-0.7) 09/06/17 05:30 Baso # (Auto) 0.0 K/uL (0.0-0.2) 09/06/17 05:30 PT 13.1 Seconds (9.8-13.1) 09/05/17 17:18 INR 1.2 (0.9-1.2) 09/05/17 17:18 APTT 28.8 Seconds (25.6-37.1) 09/05/17 17:18 Sodium 144 mmol/l (132-148) 09/06/17 05:30 Potassium 3.4 MMOL/L (3.6-5.0) L 09/06/17 05:30 Chloride 102 mmol/L (98-107) 09/06/17 05:30 Carbon Dioxide 28 mmol/L (22-30) 09/06/17 05:30 Anion Gap 17 (10-20) 09/06/17 05:30 BUN 11 mg/dl (9-20) 09/06/17 05:30 Creatinine 0.5 mg/dl (0.8-1.5) L 09/06/17 05:30 Est GFR ( Amer) > 60 09/06/17 05:30 Est GFR (Non-Af Amer) > 60 09/06/17 05:30 POC Glucose (mg/dL) 189 mg/dL (65-110) H 09/06/17 10:35 Random Glucose 139 mg/dL (75-110) H 09/06/17 05:30 Hemoglobin A1c 7.1 % (4.2-6.5) H 09/06/17 05:30 Calcium 9.7 mg/dL (8.4-10.2) 09/06/17 05:30 Magnesium 1.4 MG/DL (1.6-2.3) L 09/05/17 17:18 Total Bilirubin 0.9 mg/dl (0.2-1.3) 09/06/17 05:30 AST 23 U/L (17-59) 09/06/17 05:30 ALT 45 U/L (21-72) 09/06/17 05:30 Alkaline Phosphatase 66 U/L (38-126) 09/06/17 05:30 Troponin I < 0.0120 ng/mL (0.00-0.120) 09/06/17 09:14 Total Protein 6.6 G/DL (6.3-8.2) 09/06/17 05:30 Albumin 3.8 g/dL (3.5-5.0) 09/06/17 05:30 Globulin 2.8 gm/dL (2.2-3.9) 09/06/17 05:30 Albumin/Globulin Ratio 1.4 (1.0-2.1) 09/06/17 05:30 Triglycerides 102 mg/DL (0-149) 09/06/17 05:30 Cholesterol 152 mg/dL (0-199) 09/06/17 05:30 LDL Cholesterol Direct 76 mg/dL (0-129) 09/06/17 05:30 HDL Cholesterol 53 MG/DL (30-70) 09/06/17 05:30 Lipase 74 U/L (23-300) 09/05/17 17:18 Vitamin B12 722 pg/mL (239-931) 09/06/17 05:30 Free T4 0.82 ng/dL (0.78-2.19) 09/06/17 05:30 Thyroxine (T4) 5.85 ug/dl (5.5-11.0) 09/06/17 05:30 TSH 3rd Generation 1.34 mIU/ML (0.46-4.68) 09/06/17 05:30 Cortisol AM Sample 1.6 ug/dL (4.46-22.7) L 09/06/17 05:30 Urine Color Yellow (YELLOW) 09/05/17 17:46 Urine Clarity Slighty-cloudy (Clear) 09/05/17 17:46 Urine pH 7.0 (5.0-8.0) 09/05/17 17:46 Ur Specific [place] 1.019 (1.003-1.030) 09/05/17 17:46 Urine Protein Negative mg/dL (NEGATIVE) 09/05/17 17:46 Urine Glucose (UA) 150 mg/dL (Normal) 09/05/17 17:46 Urine Ketones Negative mg/dL (NEGATIVE) 09/05/17 17:46 Urine Blood Negative (NEGATIVE) 09/05/17 17:46 Urine Nitrate Negative (NEGATIVE) 09/05/17 17:46 Urine Bilirubin Negative (NEGATIVE) 09/05/17 17:46 Urine Urobilinogen 2.0 mg/dL (0.2-1.0) 09/05/17 17:46 Ur Leukocyte Esterase Neg Harsha/uL (Negative) 09/05/17 17:46 Urine RBC (Auto) 2 /hpf (0-3) 09/05/17 17:46 Urine Microscopic WBC 1 /hpf (0-5) 09/05/17 17:46 Urine Bacteria Rare (<OCC) 09/05/17 17:46 Hyaline Casts 0-2 /hpf (0-2) 09/05/17 17:46 Blood Type O POSITIVE 09/05/17 17:18 Antibody Screen Negative 09/05/17 17:18 BBK History Checked No verified bt 09/05/17 17:18 - Hospital Course Hospital Course: 71 yo male with history of CAD (quadruple bypass 17 yrs ago), DM2, HTN and CVA ( 10 and 4 yrs ago) brought by daughter claiming he progressively was getting weak and had difficulty ambulating since 2 weeks ago. She claimed he had been falling a number of times at home. Patient also has been complaining of left sided chest pain and has SOB on mild exertion. Daughter suspect that the chest pain might be an extension of his left frozen shoulder which have been bothering him causing him not to be able to sleep at night. Patient was placed on chest observation and evaluated for extreme weakness and lethargy. Serial Troponins were negative. ECHO did not show any abnormality. Endocrinology and Psyche consult were called. Dr Nolasco, psyche consult, advised increasing dose of Remeron and continue Cymbalta. Patient the next day was more up and talking compared to previous when he was more down, listless and not talking at all. Patient was discharged in stable condition. Discharge Exam - Head Exam Head Exam: ATRAUMATIC - Eye Exam Eye Exam: absent: Scleral icterus - ENT Exam ENT Exam: Mucous Membranes Moist - Respiratory Exam Respiratory Exam: absent: Rhonchi, Wheezes, Respiratory Distress, Stridor - Cardiovascular Exam Cardiovascular Exam: REGULAR RHYTHM, +S1, +S2 - GI/Abdominal Exam GI & Abdominal Exam: Soft. absent: Tenderness - Rectal Exam Rectal Exam: Deferred - Back Exam Back exam: absent: tenderness - Neurological Exam Neurological exam: Alert, Oriented x3 - Psychiatric Exam Psychiatric exam: Normal Affect - Skin Skin Exam: Dry, Intact Discharge Plan - Discharge Medications Prescriptions: GlipiZIDE [Glucotrol] 10 mg PO BRKDIN #60 tab Mirtazapine [Remeron] 15 mg PO HS #20 tab SITagliptin [Januvia] 100 mg PO DAILY #30 tab - Follow Up Plan Condition: STABLE Disposition: HOME/ ROUTINE Instructions: Depression, Adult (DC), Chest Pain (DC) Additional Instructions: hacer ekaterina con el doctor en 1 semana Referrals: Nolberto Canales MD [Family Provider] -
--- NOTE | 2017-09-06 17:43 | CARD ---
APPROVED REPORT EXAM: Two-dimensional and M-mode echocardiogram with Doppler and color Doppler. Other Information Quality : GoodRhythm : NSR INDICATION Chest Pain Surgery/Intervention CABD DIMENSIONS IVSd1.17 (0.7-1.1cm)LVDd4.51 (3.9-5.9cm) LVOT Diameter2.26 (1.8-2.4cm)PWd0.72 (0.7-1.1cm) IVSs1.36 (0.8-1.2cm)LVDs3.31 (2.5-4.0cm) FS (%) 26.6 %PWs1.40 (0.8-1.2cm) M-Mode DIMENSIONS Left Atrium (MM)4.27 (2.5-4.0cm)IVSd1.05 (0.7-1.1cm) Aortic Root3.14 (2.2-3.7cm)LVDd5.29 (4.0-5.6cm) Aortic Cusp Exc.1.79 (1.5-2.0cm)PWd0.97 (0.7-1.1cm) IVSs0.97 cmFS (%) 30 % LVDs3.69 (2.0-3.8cm)PWs1.32 cm Mitral Valve MV E Gtffagud24.2cm/sMV DECEL [id number] A Bqaknqun76.9cm/s MV CQT047gaO/A ratio0.5MVA (PHT)1.87cm2 TDI Lateral E' Peak V8.47cm/sMedial E' Peak V4.16cm/sE/Lateral E'4.2 E/Medial E'8.5 Pulmonary Valve PV Peak Vhbndvak248.1cm/s LEFT VENTRICLE The left ventricle is normal size. There is normal left ventricular wall thickness. The left ventricular function is normal. The left ventricular ejection fraction is within the normal range. The Ejection Fraction is 55-60%. There is normal LV segmental wall motion. The left ventricular diastolic function is normal. RIGHT VENTRICLE The right ventricle is normal size. There is normal right ventricular wall thickness. The right ventricular systolic function is normal. ATRIA The left atrium size is normal. The right atrium size is normal. AORTIC VALVE The aortic valve is normal in structure. No aortic regurgitation is present. There is no aortic valvular stenosis. MITRAL VALVE The mitral valve is normal in structure. There is no mitral valve stenosis. There is no mitral valve regurgitation noted. TRICUSPID VALVE The tricuspid valve is normal in structure. There is no tricuspid valve regurgitation noted. There is no tricuspid valve stenosis. PULMONIC VALVE The pulmonary valve is normal in structure. There is no pulmonic valvular regurgitation. There is no pulmonic valvular stenosis. GREAT VESSELS The aortic root is normal in size. The IVC is normal in size and collapses >50% with inspiration. PERICARDIAL EFFUSION The pericardium appears normal. <Conclusion> The left ventricle is normal size. The left ventricular function is normal. The left ventricular ejection fraction is within the normal range. The Ejection Fraction is 55-60%.
--- NOTE | 2017-09-06 18:05 | CARD ---
APPROVED REPORT EKG Measurement Heart [id number] <Conclusion> Normal sinus rhythm T wave abnormality, consider lateral ischemia Abnormal ECG
--- NOTE | 2017-09-06 18:58 | PN ---
DATE: 09/06/2017 ENDO FOLLOWUP NOTE LOCATION: In room 406. This is a 71-year-old male with recent uncontrolled type 2 insulin-requiring diabetes, presenting here with severe bouts of dizziness and lightheadedness and supervening left-sided precordial chest pain and also worsening left-sided weakness and is currently undergoing cardiac and neurological workup at this time. His glycemic levels are fluctuating but improved and the latest glucose values today are actually 189 mg/dL. His hemoglobin A1c is 7.1%, which is actually near optimal metabolic control. His latest chemistry showed a BUN of 11, sodium 144, potassium 3.4, chloride 102, CO2 28, glucose 139 and creatinine 0.5. His serum cortisol level is quite low at 1.6 mcg/dL. The thyroid studies showed a T4 of 5.85, TSH of 1.34. ASSESSMENT This is a 71-year-old male with type 2 insulin-requiring diabetes and near optimal metabolic control at this time. He is on a combination of oral hypoglycemic therapy with basal insulin therapy as given. He also remains clinically and biochemically euthyroid with no need for any kind of thyroid pharmacotherapy at this time. PLAN OF MANAGEMENT: As discussed with the patient and the daughter Finn, we will continue his present medical management in terms of his diabetic management with Levemir given as 10 units subcu at bedtime daily as given and we will continue the Januvia at 100 mg daily and glipizide at 10 mg b.i.d. before meals as ordered. We will continue the low-dose correction scale using regular insulin as ordered. We will obtain serial chemistries and supplement accordingly as needed. We will concur with the present cardiac and neurologic workup at this time. No indication for any kind of thyroid pharmacotherapy. We will obtain serial chemistries and supplement accordingly needed. We will follow. Roxanna Diaz MD
[2017-09-06] MEDS ORDERED: Pravastatin Sodium 20 MG TAB PO SCH (22:00)
[2017-09-09 14:33] VITALS: O2SAT 99
== END 2017-09-06 15:00 | disposition home or self-care (01) ==
LOC: H.ER 16:27 → H.ERHOLD 18:24 → H.TEL 21:55
DX: R07.2 Precordial pain (principal); E11.65 Type 2 diabetes mellitus with hyperglycemia; E11.42 Type 2 diabetes mellitus with diabetic polyneuropathy; E11.319 Type 2 diabetes mellitus with unspecified diabetic retinopathy without macular edema; G89.29 Other chronic pain; I25.10 Atherosclerotic heart disease of native coronary artery without angina pectoris; M75.02 Adhesive capsulitis of left shoulder; F32.9 Major depressive disorder, single episode, unspecified; I10 Essential (primary) hypertension; E78.5 Hyperlipidemia, unspecified; E03.9 Hypothyroidism, unspecified; E78.00 Pure hypercholesterolemia, unspecified; Z95.1 Presence of aortocoronary bypass graft; Z86.73 Personal history of transient ischemic attack (TIA), and cerebral infarction without residual deficits; Z79.4 Long term (current) use of insulin
CPT/HCPCS: 36415; 70450; 71046; 73030; 80053; 80061; 81003; 82533; 82607; 82948; 83036; 83690; 83735; 84436; 84443; 84484; 85025; 85610; 85730; 86376; 86850; 86900; 93005; 93306; 96372; 96374; 99285; G0378; J1650

== ENCOUNTER 2018-01-28 15:55 | Emergency (ER) | payer MEDICARE, MEDICAID ==
--- NOTE | 2018-01-28 16:52 | ED PDOC ---
Syncope/Near Syncope/Dizziness Time Seen by Provider: 01/28/18 16:24 Chief Complaint (Nursing): Dizziness/Lightheaded Chief Complaint (Provider): Dizzy History Per: Patient Additional Complaint(s): 71 yo male with history of CAD (quadruple bypass 17 yrs ago), DM2, HTN and CVA (10 and 4 yrs ago), presents to the ED complaining of dizziness this morning. Pt denies any chest pain or SOB, no diaphoresis. Pt reports that he took his blood sugar and it as 55, after he ate an apple and called 911. At this time Pt reports feeling well, no acute dizziness, no weakness, no headache Past Medical History Reviewed: Historical Data, Nursing Documentation, Vital Signs Vital Signs: Last Vital Signs Temp 97.7 F 01/28/18 16:01 Pulse 81 01/28/18 16:01 Resp 20 01/28/18 16:01 BP 135/72 01/28/18 16:01 Pulse Ox 99 01/28/18 16:01 - Medical History PMH: CVA, Depression, Diabetes, HTN, Hypercholesterolemia, Hypothyroidism ("thyroid hormone" DC 6 months ago), TIA Denies: HIV, Chronic Kidney Disease - Surgical History Surgical History: CABG - Family History Family History: States: Unknown Family Hx - Home Medications Home Medications: Ambulatory Orders Medication Instructions Recorded Clopidogrel [Plavix] 75 mg PO DAILY 09/05/17 DULoxetine [Cymbalta] 30 mg PO Q12 09/05/17 Ergocalciferol (Vitamin D2) 50,000 unit PO 09/05/17 [Vitamin D2] Furosemide [Lasix] 20 mg PO DAILY 09/05/17 Insulin Glargine, Recombina 10 unit SC 09/05/17 [Lantus] Meloxicam [Mobic] 15 mg PO DAILY PRN 09/05/17 Metoprolol Succinate XL [Toprol XL] 25 mg PO DAILY 09/05/17 Nitroglycerin [Nitrostat] 0.4 mg SL Q5MIN PRN 09/05/17 Simvastatin 10 mg PO HS 09/05/17 Tamsulosin [Flomax] 0.4 mg PO 09/05/17 amLODIPine [Norvasc] 5 mg PO DAILY 09/05/17 traMADol [Ultram] 50 mg PO Q8 PRN 09/05/17 Gabapentin [Neurontin] 400 mg PO Q8 cap 09/06/17 GlipiZIDE [Glucotrol] 10 mg PO BRKDIN #60 tab 09/06/17 Mirtazapine [Remeron] 15 mg PO HS #20 tab 09/06/17 SITagliptin [Januvia] 100 mg PO DAILY #30 tab 09/06/17 - Allergies Allergies/Adverse Reactions: Allergies Allergy/AdvReac Type Severity Reaction Status Date / Time No Known Allergies Allergy Verified 02/27/17 18:42 Review of Systems ROS Statement: Except As Marked, All Systems Reviewed And Found Negative Neurological: Positive for: Dizziness Physical Exam - Reviewed Nursing Documentation Reviewed: Yes Vital Signs Reviewed: Yes - Physical Exam Appears: Positive for: Well, Non-toxic, No Acute Distress Head Exam: Positive for: ATRAUMATIC, NORMAL INSPECTION, NORMOCEPHALIC Skin: Positive for: Normal Color, Warm, DRY Eye Exam: Positive for: EOMI, Normal appearance, PERRL ENT: Positive for: Normal ENT Inspection Neck: Positive for: Normal, Painless ROM Cardiovascular/Chest: Positive for: Regular Rate, Rhythm Respiratory: Positive for: CNT, Normal Breath Sounds Gastrointestinal/Abdominal: Positive for: Normal Exam, Soft Back: Positive for: Normal Inspection Extremity: Positive for: Normal ROM Neurologic/Psych: Positive for: Alert, Oriented - Laboratory Results Result Diagrams: 01/28/18 17:54 01/28/18 17:54 - ECG O2 Sat by Pulse Oximetry: 99 Medical Decision Making Medical Decision Making: FS upon arrival: 74 EKG interpreted and cleared by ED MD Pt placed on cytotechnologist/histotechnologist, Vitals stable Diagnostics ordered. Pt tolerating PO food tray, offers no complaints during stay. labs resulted and reviewed with Pt and Pt asking to go home on re-eval. Reports he feels well and would liek to leave. Pt denies nay chest pain, SOB, diaphriesis, no feeling of weakness. UA uncollected at this time; however, Pt declined any hematuria or dysuria, would like to leave without providing specimen. Disposition - Clinical Impression Clinical Impression: Hypoglycemia - Patient ED Disposition Is Patient to be Admitted: No - Disposition Disposition: Routine/Home Disposition Time: 19:21 Condition: STABLE Instructions: Low Blood Sugar, Adult (DC) Forms: [employer] (Pashto) Print Language: CUBAN
--- NOTE | 2018-01-28 17:20 | RAD ---
Date of service: 01/28/2018 HISTORY: med screening COMPARISON: 09/05/2017 FINDINGS: LUNGS: No active pulmonary disease. Exam is limited by projection. There is evidence of prior median sternotomy. PLEURA: No significant pleural effusion identified, no pneumothorax apparent. CARDIOVASCULAR: Normal. OSSEOUS STRUCTURES: No significant abnormalities. VISUALIZED UPPER ABDOMEN: Normal. OTHER FINDINGS: None. IMPRESSION: No active disease.
[2018-01-28 18:02] LABS: BASO % 0.3 % (0.0-2.0); EOS # 0.1 K/uL (0.0-0.7); EOS % 1.1 % (0.0-4.0); HEMOGLOBIN 14.4 g/dL (12.0-18.0); LYMPH # 3.2 K/uL (1.0-4.3); LYMPH % 28.2 % (20.0-40.0); MEAN CELL VOLUME 90.2 fl (80.0-94.0); MEAN CORPUSCULAR HEMOGLOBIN 30.3 pg (27.0-31.0); MEAN CORPUSCULAR HGB CONC 33.5 g/dL (33.0-37.0); MEAN PLATELET VOLUME 7.2 fl (7.2-11.7); MONO # 0.9 K/uL (0.0-0.8); MONO % 8.1 % (0.0-10.0); NEUT # 7.1 K/uL (1.8-7.0); NEUT % 62.3 % (50.0-75.0); RBC 4.77 Mil/uL (4.40-5.90); RED CELL DISTRIBUTION WIDTH 13.1 % (11.5-14.5); WHITE BLOOD COUNT 11.3 K/uL (4.8-10.8)
[2018-01-28 18:12] LABS: ALB/GLOB RATIO 1.3 (1.0-2.1); ALBUMIN 4.2 g/dL (3.5-5.0); ALT/SGPT 43 U/L (21-72); AST/SGOT 31 U/L (17-59); BLOOD UREA NITROGEN 17 mg/dl (9-20); CALCIUM 9.6 mg/dL (8.4-10.2); GFR NON-AFRICAN AMERICAN > 60
[2018-01-28 19:18] VITALS: BP 132/74; PULSE 69; RESP 19; TEMP 98.6
[2018-01-28 19:20] VITALS: O2SAT 99
--- NOTE | 2018-01-28 21:56 | CARD ---
APPROVED REPORT Date of service: 01/28/2018 EKG Measurement Heart [id number] <Conclusion> Normal sinus rhythm T wave abnormality, consider lateral ischemia Abnormal ECG
== END 2018-01-28 19:19 | disposition home or self-care (01) ==
LOC: H.ER 15:55
DX: E11.649 Type 2 diabetes mellitus with hypoglycemia without coma (principal); Z79.4 Long term (current) use of insulin; I10 Essential (primary) hypertension; Z86.59 Personal history of other mental and behavioral disorders; E03.9 Hypothyroidism, unspecified; Z86.73 Personal history of transient ischemic attack (TIA), and cerebral infarction without residual deficits; Z95.1 Presence of aortocoronary bypass graft